=== PATIENT | female | born 1965 | race Caucasian/White ===

== ENCOUNTER → 2017-08-31 | Outpatient (CLI) | payer OTHER ==
[~2017-08-31] MED LIST: 1-ME1LIQ PO; AMLO10 PO; BUPR150CR PO; CALC500T42 PO; CIPR-9 PO; CYMB30CA PO; DULO1CAP3 PO; GLUC1CAP14 PO; HYDR50 PO; HYDR50CA PO; LISI-515 PO; LOMO PO; LOMO2.5T PO; METO50TA PO; METR-1 PO; MOTR200T PO; MULT1TAB46 PO; PROT40TA PO
--- NOTE | 2017-08-31 12:06 | MG ---
cc: Yg Pino MD, PhD TEST # [id number] TECHNIQUE: A 17-channel EEG. DESCRIPTION: The background rhythm reveals a symmetrical alpha rhythm, frequency 8 Hz. Amplitude is 10-20 microvolts. There is some muscle artifact. Photic results in a normal driving response. Hyperventilation was done with good effort, with no change in the background rhythm. No lateralizing features are identified and no epileptiform features are identified. During drowsiness there is mild slowing in the theta range. INTERPRETATION: Normal EEG. Yg Pino MD, PhD EFREN/SB , 11:53 AM , 12:05 PM
== END ==
LOC: HEEG 07:24
DX: G47.59 Other parasomnia (principal); G93.40 Encephalopathy, unspecified
CPT/HCPCS: 95819